=== PATIENT | male | born 1950 | race Caucasian/White ===

== ENCOUNTER 2022-03-28 21:35 | Inpatient (IN) | payer MEDICARE ==
[~2022-03-28] VITALS: Ht 175.3 cm; Wt 105.2 kg
[~2022-03-28 21:35] MED LIST: ACET325 PO; ASPI325 PO; ATORVASTATIN CA10 MG PO; Antivert25 MG PO; CHOL10002 PO; CIPR500 PO; CYCL10 PO; Cardura Xl8 MG PO; Coreg12.5 MG PO; DIPH50 PO; DOCU100 PO; Diovan40 MG PO; FAMC500 PO; FLONASE ALLERG9.9 ML; FLUO10 PO; FURO40 PO; Flonase 0.05% N16 GM; GABA300 PO; HYDACE10B PO; INSLI100I SC; INSUASPI SC; INSULANI SC; INSULANPEN SC; LEVEMIR FL100 UNIT/1 SC; LIDO5TP TOP; LOSA50 PO; MECL12.5 PO; Metformin HCl500 M1 PO; NEBI10 PO; Norco 5-325 Ta1 EACH PO; Novolog Fl100 UNIT/1; OXYCODONE; Percocet 5-3251 EACH PO; VALS80 PO; VELTASSA8.4 GM PO; VITAMIN B122500 MC1 PO
[2022-03-28 22:03] LABS: BASOPHILS ABSOLUTE AUTO 0.03 K/mm3 (0.00-0.23); BASOPHILS PERCENT AUTO 0 % (0-2); EOSINOPHILS ABSOLUTE AUTO 0.07 K/mm3 (0.00-0.68); EOSINOPHILS PERCENT AUTO 1 % (0-6); IMMATURE GRAN ABSOLUTE AUTO 0.06 K/mm3 (0.00-0.10); IMMATURE GRAN PERCENT AUTO 1 % (0-1); LYMPHOCYTES ABSOLUTE AUTO 0.75 K/mm3 (0.84-5.20); LYMPHOCYTES PERCENT AUTO 6 % (21-46); MONOCYTES PERCENT AUTO 11 % (4-13); Mean Corpuscular HGB 30.5 pg (26.0-34.0); Mean Corpuscular HGB Conc 34.3 g/dL (31.5-36.5); Mean Corpuscular Volume 89 fL (80-100); Mean Platelet Volume 11.4 fL (9.1-12.4); NEUTROPHILS ABSOLUTE AUTO 10.79 K/mm3 (1.96-9.15); NEUTROPHILS PERCENT AUTO 82 % (41-73); Platelet Count 154 K/mm3 (150-400); RDW Coefficient Variation 12.8 % (11.7-14.2); Red Blood Cell Count 3.94 M/mm3 (4.30-5.90)
[2022-03-28 22:22] LABS: Albumin, Blood 3.6 g/dL (3.4-5.0); Albumin/Globulin Ratio 0.8 (0.8-1.8); Bilirubin, Total 0.5 mg/dL (0.1-1.0); Bun/Creatinine Ratio 22.1 (12.0-20.0); Calcium, Blood 9.2 mg/dL (8.5-10.1); Creatinine, Blood 1.99 mg/dL (0.60-1.20); Globulin, Blood 4.3 g/dL (2.2-4.0); Potassium, Blood 4.2 mmol/L (3.5-5.5); Total Protein, Blood 7.9 g/dL (6.4-8.2)
[2022-03-29 00:28] LABS: Source, Urine Clean Catch
[2022-03-29 00:32] LABS: Bilirubin, Urine Neg (Neg); Blood, Urine 1+ (Neg); Glucose Qualitative, Urine 4+ (Neg); Ketones, Urine Neg (Neg); Leukocyte Esterase, Urine 1+ (Neg); Nitrite, Urine Neg (Neg); Protein, Urine 1+ (Neg); Urobilinogen, Urine NORM (Normal)
[2022-03-29 00:48] LABS: Appearance, Urine Clear (Clear); Color, Urine Pale Yellow (P-Yellow); Red Blood Cells, Urine 0-2 /hpf (0-2)
[2022-03-29 00:49] LABS: Bacteria Mod /hpf; Squamous Epithelial Cells Rare /hpf (Few)
[2022-03-29] MEDS ORDERED: METFORMIN HCL500 M3 PO (06:00)
[2022-03-29] MEDS ORDERED: FARXIGA10 MG PO (06:00)
[2022-03-29] MEDS ORDERED: DOXAZOSIN MESYLA8 M2 PO (06:00)
[2022-03-29] MEDS ORDERED: EUTHYROX50 MC1 PO (06:01)
[2022-03-29] MEDS ORDERED: FENOFIBRATE48 MG PO (06:02)
[2022-03-29] MEDS ORDERED: NOVOLOG100 UNIT/2 INJ (06:02)
[2022-03-29] MEDS ORDERED: INSULANI (06:03)
[2022-03-29] MEDS ORDERED: VALSARTAN160 MG PO (06:03)
[2022-03-29] MEDS ORDERED: K-Dur10 MEQ (06:04)
[2022-03-29 08:58] LABS: SARS-Cov-2 (COVID-19) PCR, MMC NEGATIVE (NEGATIVE)
--- NOTE | 2022-03-29 09:21 | NUR ---
ADMISSION: REPORT RECEIVED FROM SANJUANA DELAROSA RN. PT A/O, VSS UPON ASSESSMENT. PT DENIES N/V AND ONLY SLIGHT ABD PAIN. PT [employer]UCATED [employer] MANA[employer] LIGHT, SAFETY. WILL CTM, PLAN IS FOR SURGERY AT NOON.
--- NOTE | 2022-03-29 13:17 | NUR ---
PT TO OR AT ABOUT 1248
--- NOTE | 2022-03-29 18:21 | NUR ---
POST OP: REPORT RECEIVED FROM BENCH TOOL MAKER GUCCI, PT TO UNIT AT ABOUT 1610. PT IS A/O, VSS, PT ABLE TO AMBULATE TO BED FROM [facility]. PT DENIES N/V, GIVEN 1 NARCO FOR PAIN. WILL CTM
--- NOTE | 2022-03-29 18:23 | NUR ---
SUMMARY: NO CHANGE SINCE POST OP. PT REPORTS PAIN WELL MANAGED, ABLE TO EAT SOME ADA DIET DINNER. SURGICAL SITES WNL. AWAITING VOID. WILL PASS REPORT TO ANANDA LOZANO.
[2022-03-30 04:29] LABS: BASOPHILS ABSOLUTE AUTO 0.02 K/mm3 (0.00-0.23); BASOPHILS PERCENT AUTO 0 % (0-2); EOSINOPHILS PERCENT AUTO 0 % (0-6); Hematocrit 34.1 % (37.0-53.0); Hemoglobin 11.6 g/dL (13.5-17.5); IMMATURE GRAN PERCENT AUTO 1 % (0-1); LYMPHOCYTES ABSOLUTE AUTO 0.47 K/mm3 (0.84-5.20); LYMPHOCYTES PERCENT AUTO 4 % (21-46); MONOCYTES ABSOLUTE AUTO 0.84 K/mm3 (0.16-1.47); MONOCYTES PERCENT AUTO 6 % (4-13); Mean Corpuscular HGB 30.9 pg (26.0-34.0); Mean Corpuscular Volume 91 fL (80-100); Mean Platelet Volume 11.6 fL (9.1-12.4); NEUTROPHILS ABSOLUTE AUTO 11.74 K/mm3 (1.96-9.15); NEUTROPHILS PERCENT AUTO 89 % (41-73); Platelet Count 134 K/mm3 (150-400); RDW Coefficient Variation 13.1 % (11.7-14.2); RDW Standard Deviation 42.8 fL (35.1-46.3); Red Blood Cell Count 3.76 M/mm3 (4.30-5.90); White Blood Cell Count 13.17 K/mm3 (4.00-11.30)
[2022-03-30 04:44] LABS: Bun/Creatinine Ratio 19.1 (12.0-20.0); Calcium, Blood 8.6 mg/dL (8.5-10.1); Creatinine, Blood 2.2 mg/dL (0.60-1.20); Potassium, Blood 4.4 mmol/L (3.5-5.5)
--- NOTE | 2022-03-30 05:30 | NUR ---
TAXICAB COORDINATOR SUMMARY NO ACUTE CHANGES THIS SHIFT. PT POD 0 LAP ADDIS. MINIMAL PAIN PER PT, MEDICATED ONCE AT BEDTIME FOR PAIN. LAP SITE ON ABD C/D/I WITH NO DRAINAGE NOTED. PT AAOX4 AND INDEPENDENT IN ROOM. VSS, WILL CONTINUE TO MONITOR.
[2022-03-30] MEDS ORDERED: NOVOLOG FL100 UNIT/3 (10:59)
--- NOTE | 2022-03-30 11:22 | NUR ---
pt zach regular diet without nausea. reports pain is well controlled with po meds. pt states he will take tylenol for pain at home and does not wish to obtain a pain medication rx. ambulating independently in room, voiding clear yellow uriine. abd incisions with steri strips clean dry and intact. pt in agreeemtn with plan to discharge to home after lunch. discharge instructions reviewed with patient and pt verbalizes understanding of. pt is familiar with sliding scale insulin dosing
--- NOTE | 2022-03-30 12:52 | NUR ---
1245 discharged to home,pt reports pain is well controlled
== END 2022-03-30 12:42 | disposition home or self-care (01) | DRG 854 ==
LOC: ER 21:35 → ERHOLD 03-29 01:40 → SURS 03-29 08:45
PROVIDERS: Physician Assistant; Surgery; ADMIT Internal Medicine
PROC: BF131ZZ Fluoroscopy of Gallbladder and Bile Ducts using Low Osmolar Contrast (ICD-10-PCS; 2022-03-29)
PROC: 3E03329 Introduction of Other Anti-infective into Peripheral Vein, Percutaneous Approach (ICD-10-PCS; 2022-03-29)
PROC: 0FT44ZZ Resection of Gallbladder, Percutaneous Endoscopic Approach (ICD-10-PCS; principal; 2022-03-29 12:00)
DX: A41.9 Sepsis, unspecified organism (principal); I13.0 Hypertensive heart and chronic kidney disease with heart failure and stage 1 through stage 4 chronic kidney disease, or unspecified chronic kidney disease; I50.22 Chronic systolic (congestive) heart failure; N17.9 Acute kidney failure, unspecified; K80.12 Calculus of gallbladder with acute and chronic cholecystitis without obstruction; Z20.822 Contact with and (suspected) exposure to COVID-19; N18.30 Chronic kidney disease, stage 3 unspecified; E11.22 Type 2 diabetes mellitus with diabetic chronic kidney disease; E86.0 Dehydration; N40.0 Benign prostatic hyperplasia without lower urinary tract symptoms; E78.1 Pure hyperglyceridemia; Z90.5 Acquired absence of kidney; Z85.53 Personal history of malignant neoplasm of renal pelvis; Z90.89 Acquired absence of other organs; Z79.4 Long term (current) use of insulin; Z79.899 Other long term (current) drug therapy
CPT/HCPCS: 36415; 74177; 74300; 80048; 80053; 81001; 82947; 85025; 87077; 87086; 87186; 88304; 93005; 93010; 96365; 96375; 99285-25; A9270; C1729; J0295; J1100; J1815; J2001; J2370; J2405; J2543; J2704; J3010; J7030; J7040; J7120; Q9967; U0004

== ENCOUNTER 2022-10-26 07:15 | Day surgery (SDC) | payer MEDICARE ==
[~2022-10-26] VITALS: Ht 175.3 cm; Wt 100.9 kg
[~2022-10-26 07:15] MED LIST changes: +DOXAZOSIN MESYLA8 M2 PO; +EUTHYROX50 MC1 PO; +FARXIGA10 MG PO; +FENOFIBRATE48 MG PO; +INSULANI; +K-Dur10 MEQ; +METFORMIN HCL500 M3 PO; +NOVOLOG FL100 UNIT/3; +NOVOLOG100 UNIT/2 INJ; +VALSARTAN160 MG PO
== END 2022-10-26 09:35 | disposition home or self-care (01) ==
LOC: ORSCSDS 07:15
PROVIDERS: Surgery
PROC: 0DBL8ZX Excision of Transverse Colon, Via Natural or Artificial Opening Endoscopic, Diagnostic (ICD-10-PCS; principal; 2022-10-26 08:45)
PROC: 0DBM8ZX Excision of Descending Colon, Via Natural or Artificial Opening Endoscopic, Diagnostic (ICD-10-PCS; principal; 2022-10-26 08:45)
PROC: 0DBH8ZX Excision of Cecum, Via Natural or Artificial Opening Endoscopic, Diagnostic (ICD-10-PCS; principal; 2022-10-26 08:45)
DX: R93.5 Abnormal findings on diagnostic imaging of other abdominal regions, including retroperitoneum (principal); D12.3 Benign neoplasm of transverse colon; D12.0 Benign neoplasm of cecum; D12.4 Benign neoplasm of descending colon; K57.30 Diverticulosis of large intestine without perforation or abscess without bleeding; G47.30 Sleep apnea, unspecified; I25.10 Atherosclerotic heart disease of native coronary artery without angina pectoris; E78.5 Hyperlipidemia, unspecified; I25.5 Ischemic cardiomyopathy; E66.9 Obesity, unspecified; Z68.34 Body mass index [BMI] 34.0-34.9, adult; Z85.528 Personal history of other malignant neoplasm of kidney; Z79.82 Long term (current) use of aspirin; Z79.899 Other long term (current) drug therapy
CPT/HCPCS: 82947; 88305; J2704; J7120